=== PATIENT | male | born 1950 | race Asian ===

== ENCOUNTER 2019-02-15 17:30 | Emergency (ER) | payer OTHER ==
[~2019-02-15] VITALS: Ht 162.6 cm; Wt 75.7 kg
[2019-02-15 18:15] VITALS: BP_SYST 132
[2019-02-15 18:40] LABS: BILIRUBIN,URINE NEGATIVE (NEGATIVE); BLOOD, URINE 2+ (NEGATIVE); CLARITY/URINE CLEAR (CLEAR); COLOR,URINE YELLOW (YELLOW); GLUCOSE,URINE TRACE (NEGATIVE); KETONES,URINE NEGATIVE (NEGATIVE); LEUKOCYTE ESTERASE ,URINE TRACE (NEGATIVE); NITRITE, URINE NEGATIVE (NEGATIVE); PH,URINE 5.5 (5.0-8.0); PROTEIN URINE TRACE (NEGATIVE)
[2019-02-15 18:47] LABS: BACTERIA,URINE MODERATE /HPF (None Seen)
[2019-02-16] MEDS ORDERED: PHENAZOPYRIDINE HCL 100 MG TABLET PO ONE
[2019-02-16 00:12] VITALS: BP_SYST 128
== END 2019-02-16 00:12 | disposition home or self-care (01) ==
LOC: SED 17:30
DX: N39.0 Urinary tract infection, site not specified (principal); R03.0 Elevated blood-pressure reading, without diagnosis of hypertension; Z87.891 Personal history of nicotine dependence
CPT/HCPCS: 81000-TC; 87086; 99283